=== PATIENT | male | born 2000 | race Caucasian/White ===

== ENCOUNTER 2021-02-17 17:02 | Emergency (ER) | payer OTHER ==
[2021-02-17 17:12] VITALS: BP 111/89
--- NOTE | 2021-02-17 17:39 | ED Physician Documentation ---
PD HPI URI - Stated complaint Stated Complaint: CONGESTED/HEADACHE/DRAINEAGE - Chief complaint Chief Complaint: Heent - History obtained from History obtained from: Patient (Patient is a healthy 21-year-old male who presents with 2 days of sinus congestion, mild nausea, body aches. Is no cough, no fever, no shortness of breath, no chest pain, no abdominal pain, no vomiting. He states that someone He was in contact with tested positive for the flu recently. He is vacc) Review of Systems Constitutional: reports: Reviewed and negative Eyes: reports: Reviewed and negative Ears: reports: Reviewed and negative Nose: reports: Rhinorrhea / runny nose, Congestion, Sinus pressure / pain. denies: Foreign Body Throat: reports: Reviewed and negative Cardiac: reports: Reviewed and negative Respiratory: reports: Reviewed and negative GI: reports: Nausea. denies: Abdominal Pain, Abdominal Swelling, Vomiting, Constipation, Diarrhea, Hematemesis, Bloody / black stool : reports: Reviewed and negative Skin: reports: Reviewed and negative Musculoskeletal: reports: Reviewed and negative Neurologic: reports: Reviewed and negative Psychiatric: reports: Reviewed and negative Endocrine: reports: Reviewed and negative Immunocompromised: reports: Reviewed and negative PD PAST MEDICAL HISTORY - Past Medical History Past Medical History: No - Present Medications Home Medications: Ambulatory Orders Medication Instructions Recorded Confirmed No Known Home Medications 02/17/21 02/17/21 - Allergies Allergies/Adverse Reactions: Allergies Allergy/AdvReac Type Severity Reaction Status Date / Time No Known Drug Allergies Allergy Verified 02/17/21 17:11 PD ED PE NORMAL - Vitals Vital signs reviewed: Yes - General General: Alert and oriented X 3, No acute distress, Well developed/nourished - HEENT HEENT: Atraumatic, Ears normal, Moist mucous membranes, Pharynx benign, Other (nares patent, no facial swelling. ) - Neck Neck: Supple, no meningeal sign, No JVD - Cardiac Cardiac: RRR, No murmur - Respiratory Respiratory: No respiratory distress - Abdomen Abdomen: Normal bowel sounds, Soft, Non tender, Non distended - Derm Derm: Normal color, Warm and dry, No rash - Extremities Extremities: No deformity, No tenderness to palpate, Normal ROM s pain - Neuro Neuro: Alert and oriented X 3, stock controller 2-12 intact Eye Opening: Spontaneous Motor: Obeys Commands Verbal: Oriented GCS Score: 15 - Psych Psych: Normal mood, Normal affect Results - Vitals Vitals: Vital Signs - 24 hr 02/17/21 17:11 Temperature 36.6 C Heart Rate 71 Respiratory 18 Rate Blood Pressure 111/89 H O2 Saturation 100 Oxygen O2 Source Room air PD MEDICAL DECISION MAKING - ED course Complexity details: d/w patient ED course: -year-old male presented with nasal congestion, his exam is reassuring he is afebrile and symptoms have been only been present for 2 days. Subjective viral sinusitis. Will test for flu and Covid as patient has had contact with the positive flu patient. Reviewed supportive measures including [id number] Tylenol, ibuprofen, decongestants, nasal saline, rest and oral fluids. I reviewed return precautions if his symptoms were to worsen or persist beyond 10 to 14 days. Departure - Departure Disposition: 01 Home, Self Care Clinical Impression: Viral sinusitis Condition: Good Instructions: ED Sinusitis No Abx Comments: You presented w/ sinus congestion and pain. Your exam and Is are consistent with a viral sinusitis. These typically last 5 to 10 days and are accompanied by sinus congestion, facial fullness, fatigue. If you develop a high fever or your symptoms worsen during that time recommend reevaluation. We have tested you for flu and Covid and it is important you stay home and self isolate until those test results have returned. Continue supportive measures including Tylenol or ibuprofen, and [id number] Saline, nasal decongestant, and oral decongestant medication. Forms: Activity restrictions
== END 2021-02-17 18:10 | disposition home or self-care (01) ==
LOC: ED 17:02
DX: J32.8 Other chronic sinusitis (principal); B97.89 Other viral agents as the cause of diseases classified elsewhere; Z20.822 Contact with and (suspected) exposure to COVID-19
CPT/HCPCS: 87275; 87276; 99283

== ENCOUNTER 2023-08-24 03:53 | Emergency (ER) | payer OTHER ==
[2023-08-24 04:05] VITALS: BP 148/91; O2SAT 99
--- NOTE | 2023-08-24 04:10 | ED Physician Documentation ---
PD HPI LOWER EXT INJURY - Stated complaint Stated Complaint: MARVIN ON FEET - Chief complaint Chief Complaint: Burn - History obtained from History obtained from: Patient - Additional information Additional information: HPI from patient. At approximately 15:00 yesterday while working at [employer], jet fuel (JP5) spilled into both of the boots patient was wearing. He immediately removed the boots and his socks. He subsequently put on new socks and his own shoes and drove home, and washed his feet with soap and water once he was home. He estimates the amount of time elapsed from the skin exposure to when he washed his feet was approximately 30 minutes. Patient had some mild pruritis subsequent to the e xposure but woke this morning at approximately 01:00 due to worsening pruritis of both feet and mild burning discomfort. The symptoms are limited to the plantar aspects of both feet (forefoot). No exacerbating nor ameliorating factors. He says the pruritis and discomfort have mildly improved since waking up at 01:00 and this evaluation PD PAST MEDICAL HISTORY - Past Medical History Past Medical History: Yes Cardiovascular: None Respiratory: None Neuro: None Endocrine/Autoimmune: None GI: None : None HEENT: None Psych: None Musculoskeletal: None Derm: None - Past Surgical History Past Surgical History: No - Present Medications Home Medications: Ambulatory Orders Medication Instructions Recorded Confirmed No Known Home Medications 08/24/23 08/24/23 - Allergies Allergies/Adverse Reactions: Allergies Allergy/AdvReac Type Severity Reaction Status Date / Time No Known Drug Allergies Allergy Verified 08/24/23 03:57 - Social History Does the pt smoke?: No Smoking Status: Never smoker Does the pt drink ETOH?: No Does the pt have substance abuse?: No - Immunizations Immunizations are current?: Yes - POLST Patient has POLST: No PD ED PE NORMAL - Vitals Vital signs reviewed: Yes - General General: Alert and oriented X 3, No acute distress, Well developed/nourished PD ED PE EXPANDED - Extremities Feet visual: 1 - rash (mild, poorly marginated, flat erythema. nontender, no blistering) Results - Vitals Vitals: Vital Signs - 24 hr 08/24/23 03:58 Temperature 36.5 C Heart Rate 79 Respiratory 16 Rate Blood Pressure 148/91 H O2 Saturation 99 Oxygen O2 Source Room air PD Medical Decision Making - ED course Complexity details: considered differential, d/w patient ED course: Mild skin irritation and pruritis at areas on both feet of exposure to JONN-5 jet fuel. I spoke with PCC: no observation necessary, would not anticipate any significant worsening of signs/symptoms, safe to d/c at this time, and no specific symptomatic recommendations except for consider low-potency topical steroid such as hydrocortisone. I discussed this with the patient. I advised him to use PO antihistamine such as benadryl per label instructions as needed for pruritis, as well as consider using topical OTC topical hydrocortisone per label instructions. Departure - Departure Disposition: 01 Home, Self Care Clinical Impression: Exposure to polycyclic aromatic hydrocarbons Condition: Good Instructions: ED Chemical Exp Skin Comments: This exposure is unlikely to cause any significant symptoms. You might continue to have very degrees of irritation and itching of the exposed areas of skin on the feet, but this should gradually improve during the day today. As we discussed, you can take an [id number] antihistamine if you are having significant itching. One such medication is Benadryl; be aware that this medication will likely make you drowsy and thus if you take a dose of Benadryl, you should not drive for a minimum of 6 hours (and only after 6 hours if you are not experiencing any significant drowsiness). Another medication that you can use that is [id number] is topical hydrocortisone. Apply as per label instructions until the symptoms resolve. Forms: Activity restrictions Discharge Date/Time: 08/24/23 05:07
[2023-08-24] MEDS: HYDROCORTISONE 1% CREAM 28 GM TUBE TOP STA (05:07)
== END 2023-08-24 05:07 | disposition home or self-care (01) ==
LOC: ED 03:53
DX: L29.9 Pruritus, unspecified (principal); R20.8 Other disturbances of skin sensation; R21 Rash and other nonspecific skin eruption; Z77.098 Contact with and (suspected) exposure to other hazardous, chiefly nonmedicinal, chemicals
CPT/HCPCS: 99282; 99283